=== PATIENT | male | born 1965 | race Caucasian/White ===

== ENCOUNTER 2021-06-29 12:25 | Emergency (ER) | payer BC ==
[~2021-06-29] VITALS: Ht 190.5 cm; Wt 72.7 kg
[2021-06-29 12:50] VITALS: TEMP 97.8
[2021-06-29 13:10] LABS: COLLECTION METHOD CLEAN CATCH
[2021-06-29 13:16] LABS: MUCOUS Present /lpf; PH 6 (5-8); SQUAMOUS EPITHELIAL None Seen /hpf; URINE APPEARANCE Clear; URINE BACTERIA Rare /hpf; URINE BILIRUBIN Negative (NEGATIVE); URINE BLOOD Negative (NEGATIVE); URINE COLOR Yellow; URINE GLUCOSE Negative (NEGATIVE); URINE KETONE Trace (NEGATIVE); URINE LEUKOCYTE ESTERASE Negative (NEGATIVE); URINE NITRATE Negative (NEGATIVE); URINE PROTEIN(semi-quant) Negative (NEGATIVE); URINE RBC 0-2 /hpf; URINE UROBILINOGEN Negative (NEGATIVE)
[2021-06-29 13:24] LABS: ALBUMIN 4.3 gm/dL (3.5-5.0); BILIRUBIN,TOTAL 0.8 mg/dL (0.0-1.0); CALCIUM 8.8 mg/dL (8.4-10.2); CREATININE, serum 0.84 (0.66-1.25); POTASSIUM 4.5 mmol/L (3.4-5.0); TOTAL PROTEIN 7.9 gm/dL (6.4-8.2)
[2021-06-29 13:46] LABS: HEMOGLOBIN 17.1 g/dl (13.5-18.0); MEAN CELL VOLUME 89 fl (80.0-100.0); MEAN CORPUSCULAR HEMOGLOBIN 33 pg (27.0-31.0); MEAN CORPUSCULAR HGB CONC 37 g/dl (33.0-37.0); MEAN PLATELET VOLUME 10.1 fl (7.4-10.4); PLATELET COUNT 373 K/mm3 (130-400); RED BLOOD COUNT 5.18 M/mm3 (4.20-5.60); REDCELL DISTRIBUTION WIDTH-CV 12.5 % (11.5-14.5)
[2021-06-29] MEDS ORDERED: TYLENOL 325MG325 MG PO (13:57)
[2021-06-29] MEDS ORDERED: PREDNISONE 5MG5 MG PO (13:57)
[2021-06-29] MEDS ORDERED: BACTROBAN15 GM TOP (13:58)
[2021-06-29] MEDS ORDERED: PROBIOTIC ACID1 EAC3 PO (13:59)
[2021-06-29] MEDS ORDERED: AMOXICILLIN875 MG PO (14:00)
[2021-06-29] MEDS ORDERED: OXY IR5 MG PO (14:00)
[2021-06-29] MEDS ORDERED: TYLENOL W/COD1 UDTAB PO (14:02)
[2021-06-29] MEDS ORDERED: VITAMIN B12 781 TAB PO ×2 (14:03→14:13)
[2021-06-29] MEDS ORDERED: TIROSINT112 MC1 PO (14:04)
[2021-06-29] MEDS ORDERED: ZESTRIL 10MG10 MG PO (14:04)
[2021-06-29] MEDS ORDERED: PROTONIX 40MG T40 MG PO (14:05)
[2021-06-29] MEDS ORDERED: GLUCOPHAGE500 MG/TAB PO (14:05)
[2021-06-29] MEDS ORDERED: INDERAL 10MG10 MG PO (14:06)
[2021-06-29] MEDS ORDERED: LYRICA 50MG CAP50 MG PO (14:06)
[2021-06-29] MEDS ORDERED: CARAFATE 1GM1 G PO (14:08)
[2021-06-29] MEDS ORDERED: FLONASE SENSIM9.9 ML NS (14:09)
[2021-06-29] MEDS ORDERED: DEPO-TESTOS100 MG/ML IM (14:09)
[2021-06-29] MEDS ORDERED: XOLEGEL45 GM TOP (14:10)
[2021-06-29] MEDS ORDERED: ATROVENT NASAL15 ML NS (14:10)
[2021-06-29] MEDS ORDERED: ZOFRAN ODT8 MG PO (14:10)
[2021-06-29] MEDS ORDERED: B COMPLEX #11 TA1 PO (14:11)
[2021-06-29] MEDS ORDERED: NATURAL E400 IU PO (14:11)
[2021-06-29] MEDS ORDERED: MAXALT MLT10 MG/TAB PO (14:11)
[2021-06-29] MEDS ORDERED: ONE-A-DAY ESSE1 EACH PO (14:12)
[2021-06-29] MEDS ORDERED: ERGOCALCIFER50000 IU PO (14:12)
[2021-06-29] MEDS ORDERED: PHARMASSURE L-500 MG PO (14:12)
[2021-06-29 14:17] LABS: EOSINOPHIL 4 % (0-4); LYMPHOCYTE 27 % (20.0-51.0); METAMYELOCYTE 1 % (0-0); NEUTROPHILS 53 % (42.0-75.2); PLATELET ESTIMATE NORMAL (NORMAL)
[2021-06-29 18:54] VITALS: BP 130/84; PULSE 87
== END 2021-06-29 19:11 ==
LOC: COL.ER 12:25
PROVIDERS: Family Medicine
DX: E87.1 Hypo-osmolality and hyponatremia (principal); G43.909 Migraine, unspecified, not intractable, without status migrainosus; Z79.899 Other long term (current) drug therapy
CPT/HCPCS: J0780; J1200; J1720; J1885; J7030

== ENCOUNTER → 2021-06-29 | Outpatient (CLI) | payer BC ==
[~2021-06-29] MED LIST: AMOXICILLIN875 MG PO; ATROVENT NASAL15 ML NS; B COMPLEX #11 TA1 PO; BACTROBAN15 GM TOP; CARAFATE 1GM1 G PO; DEPO-TESTOS100 MG/ML IM; ERGOCALCIFER50000 IU PO; FLONASE SENSIM9.9 ML NS; GLUCOPHAGE500 MG/TAB PO; INDERAL 10MG10 MG PO; LYRICA 50MG CAP50 MG PO; MAXALT MLT10 MG/TAB PO; NATURAL E400 IU PO; ONE-A-DAY ESSE1 EACH PO; OXY IR5 MG PO; PHARMASSURE L-500 MG PO; PREDNISONE 5MG5 MG PO; PROBIOTIC ACID1 EAC3 PO; PROTONIX 40MG T40 MG PO; TIROSINT112 MC1 PO; TYLENOL 325MG325 MG PO; TYLENOL W/COD1 UDTAB PO; VITAMIN B12 781 TAB PO; XOLEGEL45 GM TOP; ZESTRIL 10MG10 MG PO; ZOFRAN ODT8 MG PO
== END ==
LOC: COL.LAB 11:31
DX: D35.2 Benign neoplasm of pituitary gland (principal); R11.2 Nausea with vomiting, unspecified; R51.9 Headache, unspecified; Z98.890 Other specified postprocedural states

== ENCOUNTER 2022-05-15 17:07 | Emergency (ER) | payer BC ==
[~2022-05-15] VITALS: Ht 190.5 cm; Wt 86.4 kg
[2022-05-15 17:17] VITALS: PULSE 90; TEMP 98.2
[2022-05-15 18:03] LABS: BASO # 0.1 K/mm3 (0.0-0.2); BASO % 0.5 % (0.0-2.0); EOS # 0.5 K/mm3 (0.0-0.7); EOS % 4.5 % (0.0-4.0); GRAN # 7.6 K/mm3 (1.4-6.5); LYMPH # 1.6 K/mm3 (1.2-3.4); LYMPH % 14.4 % (20.0-51.0); MEAN CELL VOLUME 94 fl (80.0-100.0); MEAN CORPUSCULAR HEMOGLOBIN 31 pg (27-31); MEAN CORPUSCULAR HGB CONC 33 g/dl (33.0-37.0); MEAN PLATELET VOLUME 10.7 fl (7.4-10.4); MONO % 8.9 % (1.7-9.3); PLATELET COUNT 268 K/mm3 (130-400); RED BLOOD COUNT 3.55 M/mm3 (4.20-5.60); REDCELL DISTRIBUTION WIDTH-CV 17.1 % (11.5-14.5)
[2022-05-15 18:08] LABS: HEMATOCRIT 33.5 % (42.0-52.0)
[2022-05-15 18:19] LABS: ALBUMIN 3.1 gm/dL (3.5-5.0); BILIRUBIN,TOTAL 0.5 mg/dL (0.2-1.2); CALCIUM 8.8 mg/dL (8.4-10.2); CREATININE, serum 0.72 mg/dL (0.72-1.25); POTASSIUM 4.6 mmol/L (3.5-4.5); TOTAL PROTEIN 5.8 gm/dL (6.2-8.1)
[2022-05-15 18:26] LABS: TROPONIN-I 0.137 ng/mL (0.00-0.033)
== END 2022-05-15 20:11 | disposition short-term general hospital (02) ==
LOC: COL.ER 17:07
PROVIDERS: Emergency Medicine
DX: R55 Syncope and collapse (principal); Z95.811 Presence of heart assist device

== ENCOUNTER 2022-08-19 12:14 | Outpatient (RCR) | payer BC | END 2022-08-22 15:52 | disposition home or self-care (01) | LOC: COL.CR 12:14 | DX: I50.22 Chronic systolic (congestive) heart failure (principal) ==